=== PATIENT | female | born 1990 | race Caucasian/White ===

== ENCOUNTER → 2019-04-09 | Outpatient (CLI) | payer SELFPAY ==
[~2019-04-09] MED LIST: PREN-127 PO
--- NOTE | 2019-04-09 13:22 | RADIOLOGY IMAGING REPORT ---
FACILITY: [facility] PATIENT NAME: Simin Díaz : 1990 MR: [id number] V: [id number] EXAM DATE: ORDERING PHYSICIAN: ANTONINO LAMBERT TECHNOLOGIST: Location: [facility] [place] Patient: Simin Díaz : 1990 Visit/Account:[id number] Date of Sevice: 04/09/2019 [facility] [place] HISTORY: Anatomical survey; Pt has anoth child with cleft palate COMPARISON: None FINDINGS: Intrauterine gestations: 1 presentation: Vertex heart rate: 160 bpm Amniotic fluid volume: TINO 16 cm; Largest amniotic fluid pocket 4.4 cm Placenta: Anterior No placenta previa or retroplacental hemorrhage. Uterus: Gravid, otherwise normal Maternal adnexa: Negative Cervix: Closed Gestational Parameters: BPD: 5.2 cm; 21 weeks/ 5 days 29th percentile HC: 19.5 cm; 21 weeks/ 6 days 21st percentile AC: 17.5 cm; 22 weeks/ 3 days 50 percentile FL: 3.7 cm; 21 weeks/ 6 days 27 percentile Average ultrasound age (AUA): 22 weeks/ 0 days Estimated weight (EFW): 471 grams +/- 69 grams. Fetus is in the 38th percentile based on LMP Anatomic Survey: Intracranial structures, 4-chamber heart, stomach, kidneys, urinary bladder, 3-vessel cord and cord i nsertion are unremarkable. Two upper and two lower extremities visualized. Spine not visualized due to positioning. Patient is returning in one week. IMPRESSION: IUP of 22 weeks zero days. FAVIAN of 08/13/2019. This correlates within one day of the LMP FAVIAN of 07/22 Report Dictated By: Filiberto King MD at 04/09/2019 1:13 PM Report E-Signed By: Filiberto King MD at 04/09/2019 1:17 PM WSN:JM
== END ==
LOC: RAD 08:42
PROVIDERS: ATTEND Obstetrics & Gynecology
DX: Z02.9 Encounter for administrative examinations, unspecified (principal)

== ENCOUNTER → 2019-04-16 | Outpatient (CLI) | payer SELFPAY ==
--- NOTE | 2019-04-16 11:48 | RADIOLOGY IMAGING REPORT ---
FACILITY: [facility] PATIENT NAME: Simin Díaz : 1990 MR: [id number] V: [id number] EXAM DATE: ORDERING PHYSICIAN: TERRI SERRANO TECHNOLOGIST: Location: [facility] [place] Patient: Simin Díaz : 1990 Visit/Account:[id number] Date of Sevice: 04/16/2019 Exam type: US [facility] OB FOLLOW-UP History: follow up anatomy Comparison: April 09, 2019. Findings: There is a single fetus in breech presentation. The placenta is anterior without evidence of previa. heart rate 150 bpm TINO measured 17.11 cm, MVP 5.19 cm The cervical thoracic lumbar spine and sacrum appeared unremarkable. Estimated gestational age by LMP is 23 weeks and one day IMPRESSION: 1. Single viable fetus in breech presentation with an estimated gestational age by LMP of 23 weeks a nd one day Additional imaging of the spine was unremarkable. Report Dictated By: Dahlia Dhaliwal MD at 04/16/2019 11:40 AM Report E-Signed By: Dahlia Dhaliwal MD at 04/16/2019 11:42 AM WSN:[id number]
== END ==
LOC: RAD 09:40
PROVIDERS: ATTEND Obstetrics & Gynecology
DX: Z02.9 Encounter for administrative examinations, unspecified (principal)

== ENCOUNTER 2019-05-23 20:12 | Outpatient (CLI) | payer SELFPAY ==
[~2019-05-23] VITALS: Ht 158.8 cm; Wt 58.1 kg
[~2019-05-23 20:12] MED LIST changes: +AMOX-559 PO
[2019-05-23] MEDS ORDERED: DLR(*) 1000 ML BAG 1,000 ML IV PRN (20:14)
[2019-05-23] MEDS ORDERED: LR(*) 1000 ML BAG 1,000 ML IV PRN ×2 (20:14→20:48)
[2019-05-23 20:50] VITALS: BP 128/68; Ht 158.8 cm; Wt 58.1 kg
[2019-05-23] MEDS ORDERED: ACET500T68 PO (21:14)
[2019-05-28] MEDS ORDERED: DIPH0.5S2 IM (10:31)
== END 2019-05-23 21:21 | disposition home or self-care (01) ==
LOC: OB 20:12 → UNDOADMOB 20:12 → OB 20:12 → L&D 20:12 → UNDODISOB 21:21 → L&D 21:21 → EDSTATUS 05-26 07:16
PROVIDERS: ATTEND Obstetrics & Gynecology
DX: O26.892 Other specified pregnancy related conditions, second trimester (principal); Z3A.27 27 weeks gestation of pregnancy
CPT/HCPCS: 59025; 99213; J7120; G0378; G0379

== ENCOUNTER → 2019-05-28 | Outpatient (CLI) | payer SELFPAY ==
[2019-05-23 20:50] VITALS: BMI 23.0
[~2019-05-28] MED LIST changes: +ACET500T68 PO; +DIPH0.5S2 IM
[2019-05-28 11:40] LABS: PLATELET COUNT, AUTOMATED 151 K/uL (150-450)
== END ==
LOC: LAB 10:24
PROVIDERS: ATTEND Obstetrics & Gynecology
DX: Z34.82 Encounter for supervision of other normal pregnancy, second trimester (principal)
CPT/HCPCS: 36415; 82950; 85025

== ENCOUNTER 2019-06-07 20:33 | Outpatient (CLI) | payer SELFPAY ==
[~2019-06-07] VITALS: Ht 160 cm; Wt 64.0 kg
[2019-06-07 21:00] VITALS: BP 122/69; Ht 160 cm; Wt 64.0 kg
== END 2019-06-07 21:35 | disposition home or self-care (01) ==
LOC: OB 20:33 → L&D 20:33 → OB 20:33 → UNDOADMIN 20:33 → L&D 21:35 → UNDODISIN 21:35 → EDSTATUS 06-11 18:56
PROVIDERS: ATTEND Obstetrics & Gynecology
DX: O36.8130 Decreased fetal movements, third trimester, not applicable or unspecified (principal); Z3A.30 30 weeks gestation of pregnancy
CPT/HCPCS: 59025; 99213

== ENCOUNTER → 2019-06-11 | Outpatient (CLI) | payer SELFPAY ==
[2019-06-07 21:00] VITALS: BMI 25.0
== END ==
LOC: LAB 11:05
PROVIDERS: ATTEND Obstetrics & Gynecology
DX: Z11.8 Encounter for screening for other infectious and parasitic diseases (principal)
CPT/HCPCS: 87491; 87591